=== PATIENT | female | born 1965 | race Caucasian/White ===

== ENCOUNTER → 2017-04-09 | Outpatient (CLI) | payer OTHER | LOC: FIMAGING 08:37 | PROVIDERS: ATTEND Obstetrics & Gynecology | DX: Z12.31 Encounter for screening mammogram for malignant neoplasm of breast (principal) | CPT/HCPCS: G0202 ==

== ENCOUNTER 2017-11-15 13:08 | Emergency (ER) | payer OTHER ==
[2017-11-15 13:13] VITALS: RESP 16
--- NOTE | 2017-11-15 14:10 | CPEKG ---
Heart Rate: 79 RR Interval: 759 P-R Interval: 144 QRSD Interval: 80 QT Interval: 380 QTC Interval: 436 P Atwood: 46 QRS Atwood: 64 T Wave Atwood: -22 EKG Severity - ABNORMAL ECG - EKG Impression: SINUS RHYTHM EKG Impression: NONSPECIFIC T ABNORMALITIES, INFERIOR LEADS Electronically Signed By: Ofelia Martinez 15-Nov-2017 14:56:54
[2017-11-15] MEDS ORDERED: NS 1,000 ML IV ONE (14:16)
--- NOTE | 2017-11-15 14:17 | EDPHY ---
H & P Time Seen by Provider: 11/15/17 14:16 HPI/ROS: CHIEF COMPLAINT: Syncope, vomiting HISTORY OF PRESENT ILLNESS: 51-year-old female presents with syncope and vomiting. She has been ill with a cough and congestion for several days. Associated with low-grade fever. This morning she woke up early and was in the shower when she began to feel dizzy. She left the shower and continued to wash her hair in the sink and then had a syncopal episode. She struck her head on a chair. After she fainted, she had 1 episode of vomiting. No subsequent nausea , vomiting or diarrhea. She now feels sick with a cold, but otherwise feels back to normal. Tolerating oral fluids well. No headache or neck pain. REVIEW OF SYSTEMS: Constitutional: No fever, no chills Eyes: No visual changes ENT: No sore throat Respiratory: no shortness of breath Cardiac: No chest pain Gastrointestinal: no abdominal pain Genitourinary: no dysuria Musculoskeletal: No leg pain or swelling Skin: No rash Neurological: No headache, no weakness Psychiatric: No depression Past Medical/Surgical History: Denies Social History: Smoking Status: Never smoked Physical Exam: General Appearance: Alert, pleasant, well-appearing Head: Tender over the superior aspect of the scalp Eyes: Pupils equal and round, no conjunctival pallor or injection ENT, Mouth: Mucous membranes moist Neck: Normal inspection, no midline tenderness, paraspinous tenderness present , range of motion with mild pain Respiratory: Lungs are clear to auscultation Cardiovascular: Regular rate and rhythm Gastrointestinal: Abdomen is soft and nontender Neurological: Alert, oriented x3, cranial nerves II through XII intact, motor 5 /5, sensory intact to light touch Skin: Warm and dry Extremities: Normal inspection Psychiatric: Mood and affect normal Constitutional: Initial Vital Signs Temperature (C) 36.9 C 11/15/17 13:09 Heart Rate 88 11/15/17 13:09 Respiratory Rate 16 11/15/17 13:09 Blood Pressure 158/91 H 11/15/17 13:09 O2 Sat (%) 98 11/15/17 13:09 O2 Delivery Mode Room Air Allergies/Adverse Reactions: Penicillins Allergy (Unverified 01/01/12 10:01) Home Medications: Medication Instructions Recorded Levothyroxine 11/15/17 Medical Decision Making - Diagnostics EKG Interpretation: EKG interpreted by me reveals normal sinus rhythm, rate 79, no ST or T segment changes. ED Course/Re-evaluation: This patient presents after a syncopal episode. Stat EKG reveals no evidence of ischemia or dysrhythmia. IV normal saline 1 L given. EKG, electrolytes and CBC are unremarkable. There is no evidence of serious head injury, pneumonia or severe dehydration. Abulates with a steady gait and is not dizzy. Tolerating oral fluids well. Clinical presentation c/w vasovagal episode. Will discharge home. Differential Diagnosis: Differential diagnosis includes though is not limited to cardiac dysrhythmia, CVA, TIA, GI bleed, sepsis, hypoglycemia. - Data Points Laboratory Results: Laboratory Results 11/15/17 14:11 11/15/17 14:11 Medications Given: Discontinued Medications Sodium Chloride (Ns) 1,000 mls @ 0 mls/hr IV ONCE ONE; Wide Open PRN Reason: Protocol Stop: 11/15/17 14:17 Last Admin: 11/15/17 14:23 Dose: 1,000 mls Departure - Departure Disposition: Home, Routine, Self-Care Clinical Impression: Syncope Qualifiers: Syncope type: vasovagal syncope Qualified Code(s): R55 - Syncope and collapse Condition: Good Instructions: Syncope (ED) Additional Instructions: Drink plenty of fluids. If you have recurrent dizziness, sit down until the dizziness past this. Return to the emergency department if you have recurrent syncope or any concerns. Referrals: Alix Hernandez MD [Primary Care Provider] - As per Instructions
[2017-11-15 14:21] LABS: PLATELET COUNT 183 10^3/uL (150-400)
[2017-11-15 14:53] VITALS: BP 136/77; PULSE 76; TEMP 97.9; O2SAT 96
== END 2017-11-15 14:59 | disposition home or self-care (01) ==
DX: R55 Syncope and collapse (principal); E86.9 Volume depletion, unspecified